=== PATIENT | male | born 1940 | race Caucasian/White ===

== ENCOUNTER → 2017-01-28 | Outpatient (CLI) | payer MEDICARE, BC ==
[2017-01-28 14:02] LABS: INR 3.9 (<1.1); Prothrombin Time 37.7 sec (9.0-12.0)
== END ==
LOC: LABWHC1 12:56
PROVIDERS: ATTEND Internal Medicine
DX: D64.9 Anemia, unspecified (principal); E11.9 Type 2 diabetes mellitus without complications; E78.5 Hyperlipidemia, unspecified; I10 Essential (primary) hypertension; D68.8 Other specified coagulation defects
CPT/HCPCS: 36415; 85610